=== PATIENT | male | born 1985 | race Caucasian/White ===

== ENCOUNTER 2016-09-12 22:12 | Emergency (ER) | payer SELFPAY ==
[~2016-09-12] VITALS: Ht 188 cm; Wt 68.0 kg
--- NOTE | 2016-09-12 22:12 | NUR ---
Patient was BIBA and taken to bed 04 via gurney per EMS.
[2016-09-12 22:15] VITALS: BP 122/83
[2016-09-12] MEDS ORDERED: HALOPERIDOL IM 5 MG/ML VIAL IM ONE (22:15)
[2016-09-12] MEDS ORDERED: LORazepam 2 MG/ML VIAL IM ONE (22:15)
[2016-09-12] MEDS ORDERED: NACL 0.9% 1,000 ML IV ONE (22:15)
--- NOTE | 2016-09-12 22:16 | NUR ---
Dr. Llamas evaluating patient at bedside.
--- NOTE | 2016-09-12 22:18 | NUR ---
31Y M GARY WOLFE,[place], SCREAMING AND YELLING. CLAIMING HE IS GOD. NO DISTRESS NOTED. PT ON 4 POINT RESTRAINTS WHEN TRANSPORTED BY [facility].PT STATES NO MED HX. 31Y M GARY WOLFE,[place], SCREAMING AND YELLING. CLAIMING HE IS GOD. NO DISTRESS NOTED. PT ON 4 POINT RESTRAINTS WHEN TRANSPORTED BY [facility].PT STATES NO MED HX. DENIES N/V/D LUNGS CLEAR BL; HR EVEN AND REGULAR; PT DENIES ANY FEVER, CP, SOB, OR COUGH AT THIS TIME; PATIENT STATES PAIN OF 0/10 AT THIS TIME; VSS; PATIENT POSITIONED FOR COMFORT; HOB ELEVATED; BEDRAILS UP X2; BED DOWN. ER MD MADE AWARE OF PT STATUS.
--- NOTE | 2016-09-12 22:26 | NUR ---
LAB at bedside.
[2016-09-12 22:35] LABS: BASOPHILS # (AUTO) 0.2 K/uL (0.00-0.22); BASOPHILS % (AUTO) 1.7 % (0.0-2.0); EOSINOPHILS # (AUTO) 0.1 K/uL (0-0.4); EOSINOPHILS % (AUTO) 1.1 % (0.0-4.0); HEMATOCRIT 43.9 % (36-52); HEMOGLOBIN 14.4 g/dL (12.0-18.0); LYMPHOCYTES # (AUTO) 1.9 K/uL (2.0-11.5); LYMPHOCYTES % (AUTO) 16.4 % (20.5-51.1); MEAN CORPUSCULAR HEMOGLOBIN 30 pg (27-31); MEAN CORPUSCULAR HGB CONC 33 g/dL (33-37); MEAN CORPUSCULAR VOLUME 91 fL (80-94); MONOCYTES # (AUTO) 1.1 K/uL (0.8-1.0); MONOCYTES % (AUTO) 9.1 % (1.7-9.3); NEUTROPHILS # (AUTO) 8.3 K/uL (1.8-7.7); NEUTROPHILS % (AUTO) 71.7 % (42.2-75.2); PLATELET COUNT (AUTO) 352 K/uL (140-450); RED BLOOD CELL COUNT(AUTO) 4.83 MIL/uL (4.20-6.10); WHITE BLOOD COUNT (AUTO) 11.6 K/uL (4.8-10.8)
[2016-09-12 22:48] LABS: INR 1.2 (0.8-1.2); PROTHROMBIN TIME 11.2 secs (10.8-13.4)
[2016-09-12 22:50] LABS: ALANINE AMINOTRANSFERASE 27 U/L (12-78); ALBUMIN 4.4 g/dL (3.4-5.0); ALCOHOL, BLOOD < 3 mg/dL (<3); ALKALINE PHOSPHATASE 70 U/L (46-116); ANION GAP 14.1 (8-16); ASPARTATE AMINOTRANSFERASE 34 U/L (15-37); CARBON DIOXIDE 26.4 mmol/L (21-32); CHLORIDE 100 mmol/L (98-107); CREATININE 1.3 mg/dL (0.6-1.3); GFR ARICAN-AMERICAN 83 mL/min (>90); GFR NON ARICAN-AMERICAN 68 mL/min (>90); GLUCOSE 136 mg/dL (74-106); POTASSIUM 3.5 mmol/L (3.5-5.1); SALICYLATE 3.6 mg/dL (2.8-20.0); SODIUM SERUM 137 mmol/L (136-145); TOTAL BILIRUBIN 0.7 mg/dL (0.0-1.0); TOTAL PROTEIN, SERUM 7.8 g/dL (6.4-8.2); UREA NITROGEN, BLOOD 11 mg/dL (7-18)
[2016-09-12 22:51] LABS: ACETAMINOPHEN < 0.5 ug/ml (10-30)
[2016-09-12 23:59] LABS: AMPHETAMINE, URINE POS. ng/ml (NEG <=1000); BARBITURATE, URINE NEG. ng/ml (NEG <=200); BENZODIAZEPINE, URINE NEG. ng/mL (NEG <=200); CANNABINOID, URINE POS. ng/mL (NEG <=50); COCAINE, URINE NEG. ng/mL (NEG <=300); OPIATE, URINE NEG. ng/mL (NEG <=2000); PHENCYCLIDINE SCREEN,URINE NEG. ng/mL (NEG <=25)
--- NOTE | 2016-09-12 23:59 | NUR ---
PT APPEARS TO BE RESTING COMFORTABLY IN BED. NO SOB NOTED. WILL CONTINUE TO MONITOR.
[2016-09-13 00:24] VITALS: BP 123/71
--- NOTE | 2016-09-13 00:25 | NUR ---
Patient discharged with v/s stable. Written and verbal after care instructions given and explained. Patient alert, oriented and verbalized understanding of instructions. Ambulatory with steady gait. All questions addressed prior to discharge. ID band removed. Patient advised to follow up with PMD. NO Rx WERE given. Patient educated on indication of medication including possible reaction and side effects. Opportunity to ask questions provided and answered.
== END 2016-09-13 00:25 | disposition home or self-care (01) ==
LOC: MED 22:12
DX: T40.7X1A Poisoning by cannabis (derivatives), accidental (unintentional), initial encounter (principal); R41.82 Altered mental status, unspecified; F15.10 Other stimulant abuse, uncomplicated; Y92.488 Other paved roadways as the place of occurrence of the external cause
CPT/HCPCS: 36415; 80053; 80305; 85025; 85610; 96360; 96372; 99291; G0480; G0482; J1630; J2060; J7030

== ENCOUNTER 2016-12-19 02:00 | Emergency (ER) | payer MEDICAID ==
[~2016-12-19] VITALS: Ht 188 cm; Wt 61.2 kg
[2016-12-19 02:04] VITALS: BP 113/71
--- NOTE | 2016-12-19 02:16 | NUR ---
Patient to OF.
--- NOTE | 2016-12-19 02:18 | NUR ---
Dr. Foster evaluating patient.
[2016-12-19] MEDS ORDERED: IBUPROFEN 800 MG TAB PO ONE (02:30)
--- NOTE | 2016-12-19 02:31 | NUR ---
31Y/ M PT. PRESENTS TO ED WITH C/O BOTH FOOT PAIN, AND LEFT KNEE HURTS FOR 5 DAYS, GETTING WORST IN WALKING AROUND, PATIENT HOMELESS. AAO X4, AMBULATORY WITH STEADY GAIT. RESPIRATIONS ROOM AIR, EVEN AND UNLABORED. SKIN WARM AND DRY. NO INJURY. VSS.
[2016-12-19 02:50] VITALS: BP 113/71
--- NOTE | 2016-12-19 02:50 | NUR ---
Patient discharged with v/s stable. Written and verbal after care instructions given and explained. Patient alert, oriented and verbalized understanding of instructions. Ambulatory with steady gait. All questions addressed prior to discharge. ID band removed. Patient advised to follow up with PMD. Rx of MOTRIN 600 MG given. Patient educated on indication of medication including possible reaction and side effects. Opportunity to ask questions provided and answered.
== END 2016-12-19 02:50 | disposition home or self-care (01) ==
LOC: MED 02:00
DX: M79.672 Pain in left foot (principal); M79.671 Pain in right foot; M25.562 Pain in left knee
CPT/HCPCS: 99282

== ENCOUNTER 2019-04-20 04:02 | Emergency (ER) | payer MEDICAID ==
[~2019-04-20] VITALS: Ht 188 cm; Wt 84.8 kg
[2019-04-20 04:12] VITALS: BP 139/87
[2019-04-20] MEDS: KETOROLAC 60 MG/2 ML VIAL IM ONE (04:30)
[2019-04-20 06:05] VITALS: BP 122/81
== END 2019-04-20 06:06 | disposition home or self-care (01) ==
LOC: MED 04:02
DX: M54.2 Cervicalgia (principal); R51 Headache; F17.210 Nicotine dependence, cigarettes, uncomplicated
CPT/HCPCS: 96372; 99283; J1885

== ENCOUNTER 2019-04-20 14:00 | Emergency (ER) | payer MEDICAID ==
[~2019-04-20] VITALS: Ht 188 cm; Wt 81.6 kg
--- NOTE | 2019-04-20 14:04 | NUR ---
TO LOBBY A/W BED AMBULATORY
[2019-04-20 14:12] VITALS: BP 140/90
--- NOTE | 2019-04-20 14:54 | NUR ---
PT TO BED 8 WITH STEADY GAIT
--- NOTE | 2019-04-20 14:58 | NUR ---
NECK RADIATING TO HEAD AND MAXILLARY AREA PAIN AT 10/10, NO TRAUMA NOR INJURY, FOR A WEEK NO MEDS TAKEN . PT AWAKE ,ALERT, AMBULATORY WITH STEADY GAIT. PMHX DENIES ILLNESS.
--- NOTE | 2019-04-20 15:01 | NUR ---
PT GOING TO XRAY VIA WHEELCHAIR
--- NOTE | 2019-04-20 15:02 | NUR ---
PT WENT TO XRAY VIA WHEEL CHAIR
[2019-04-20] MEDS ORDERED: KETOROLAC 60 MG/2 ML VIAL IM ONE (15:40)
--- NOTE | 2019-04-20 15:44 | NUR ---
TORADOL IM ADMINISTERED BY ZURI VINCENT
--- NOTE | 2019-04-20 16:11 | NUR ---
PAIN LEVEL AT 7/10.PT RESTING ON BED.
--- NOTE | 2019-04-20 16:37 | NUR ---
PT MOVED TO CHAIR C
--- NOTE | 2019-04-20 16:38 | NUR ---
NADR AT THIS TIME
--- NOTE | 2019-04-20 16:45 | NUR ---
Patient discharged BY DR OSEGUERA. Written and verbal after care instructions given and explaineD BY DR OSEGUERA. Patient Ambulatory with steady gait. ID band removed. Rx of NAPROSYN given.
== END 2019-04-20 16:45 | disposition home or self-care (01) ==
LOC: MED 14:00
DX: S13.9XXA Sprain of joints and ligaments of unspecified parts of neck, initial encounter (principal); F17.210 Nicotine dependence, cigarettes, uncomplicated; Z98.890 Other specified postprocedural states; Z71.6 Tobacco abuse counseling; X58.XXXA Exposure to other specified factors, initial encounter; Y92.89 Other specified places as the place of occurrence of the external cause; Y93.89 Activity, other specified; Y99.8 Other external cause status
CPT/HCPCS: 72040; 96372; 99283; J1885

== ENCOUNTER 2019-05-19 19:09 | Emergency (ER) | payer MEDICAID ==
[~2019-05-19] VITALS: Ht 185.4 cm; Wt 84.8 kg
[2019-05-19 20:20] VITALS: BP 114/61
[2019-05-19 20:52] VITALS: BP 120/62
== END 2019-05-19 20:52 | disposition home or self-care (01) ==
LOC: MED 19:09
DX: L84 Corns and callosities (principal)
CPT/HCPCS: 99281

== ENCOUNTER 2019-06-09 18:28 | Emergency (ER) | payer MEDICAID ==
[~2019-06-09] VITALS: Ht 188 cm; Wt 84.8 kg
[2019-06-09 18:34] VITALS: BP 116/67
--- NOTE | 2019-06-09 18:55 | NUR ---
PT TO ER CHAIR D
--- NOTE | 2019-06-09 19:17 | NUR ---
PT BACK FROM X RAY
--- NOTE | 2019-06-09 19:19 | NUR ---
PT C/O RIGHT NEED PAIN X2 DAYS. PT UNKNOWN IF HE HAD ANY TRUAMA TO AREA. PT APPEARS TO BE IN NO DISTRESS. PT DENIES ANY NUMBNESS OR TINGLING IN BILATERAL LEGS. PT PMSC INTACT. PT STATES PAIN IS 10/10. WAITING FOR X-RAY RESULTS. DENIES N/V/D; SKIN IS PINK/WARM/DRY; AAOX4 WITH EVEN AND STEADY GAIT; LUNGS CLEAR BL; HR EVEN AND REGULAR; PT DENIES ANY FEVER, CP, SOB, OR COUGH AT THIS TIME; VSS; PATIENT POSITIONED FOR COMFORT; PT SITTING IN CHAIR WALL D. OLVIN CHRISTENSEN MADE AWARE OF PT STATUS.
[2019-06-09] MEDS ORDERED: KETOROLAC 30 MG/ML VIAL IM ONE (20:05)
--- NOTE | 2019-06-09 20:15 | NUR ---
DPatient discharged with v/s stable. Written and verbal after care instructions given and explained. Patient alert, oriented and verbalized understanding of instructions. Ambulatory with steady gait. All questions addressed prior to discharge. ID band removed. Patient advised to follow up with PMD. Rx of MOTRIN AND ATARAX given. Patient educated on indication of medication including possible reaction and side effects. Opportunity to ask questions provided and answered. PT GIVING RX, BUS PASS, FOOD TRAY AND HOMELESS PACKET. PT REFUSED CLOTHES.
[2019-06-09 20:17] VITALS: BP 108/62
== END 2019-06-09 20:15 | disposition home or self-care (01) ==
LOC: MED 18:28
DX: M54.5 Low back pain (principal); M25.561 Pain in right knee; Z59.0 Homelessness
CPT/HCPCS: 72100; 73562; 96372; 99283; J1885

== ENCOUNTER 2019-06-22 00:40 | Emergency (ER) | payer MEDICAID ==
[~2019-06-22] VITALS: Ht 188 cm; Wt 84.8 kg
[2019-06-22 00:45] VITALS: BP 128/89
--- NOTE | 2019-06-22 00:48 | NUR ---
TO LOBBY A/W BED AMBULATORY
--- NOTE | 2019-06-22 02:33 | NUR ---
PT C/O OF BILAT FOOT PAIN X TODAY. RATES PAIN 10/10 AND DESCRIBES IT STABBING. NO OBVIOUS DEFORMITY NOTED. CMS INACT. VSS. A&O X4. STEADY GAIT. NKA. DENIES ANY PMH.
--- NOTE | 2019-06-22 02:33 | NUR ---
PT AMBULATED TO BED 8
[2019-06-22 05:00] VITALS: BP 128/89
--- NOTE | 2019-06-22 05:00 | NUR ---
Patient given written and verbal discharge instructions and verbalizes understanding. Given copies of tests performed during visit. Patient is awake, alert and oriented. Ambulatory with steady gait. Given list of available shelters in surrounding areas. PROVIDED TRANSPORTATION, FOOD, BLANKETS, SOCKS, AND HOMELESS RESOURSE PACKET.
== END 2019-06-22 05:00 | disposition home or self-care (01) ==
LOC: MED 00:40
DX: M79.671 Pain in right foot (principal)
CPT/HCPCS: 99282

== ENCOUNTER 2019-07-07 18:30 | Emergency (ER) | payer MEDICAID ==
[~2019-07-07] VITALS: Ht 188 cm; Wt 84.8 kg
[2019-07-07 18:48] VITALS: BP 115/66
--- NOTE | 2019-07-07 18:50 | NUR ---
TRIAGE COMPLETE. VSS. TO LOBBY AWAITNG BED IN ED.
--- NOTE | 2019-07-07 18:50 | NUR ---
Elena hall in [facility] - 07/07/19 at 1850 by JENNY COLD SYMPTOMS--CONGESTION S/T SEASONAL ALLERGIES
--- NOTE | 2019-07-07 19:43 | NUR ---
PT TAKEN TO BED 1
--- NOTE | 2019-07-07 19:44 | NUR ---
PT MOVED TO CHAIR D
[2019-07-07 22:04] VITALS: BP 115/66
--- NOTE | 2019-07-07 22:04 | NUR ---
Patient discharged with v/s stable. Written and verbal after care instructions given and explained. Patient alert, oriented and verbalized understanding of instructions. Ambulatory with to car. All questions addressed prior to discharge. ID band removed. Patient advised to follow up with PMD. Rx of IBUPROFEN AND PROMETHAZINE WERE given. Patient educated on indication of medication including possible reaction and side effects. Opportunity to ask questions provided and answered. PT WAS ASSESSED AND TREATED BY HARRIETT COX
== END 2019-07-07 22:04 | disposition home or self-care (01) ==
LOC: MED 18:30
DX: J06.9 Acute upper respiratory infection, unspecified (principal); F17.210 Nicotine dependence, cigarettes, uncomplicated
CPT/HCPCS: 99282; 99283

== ENCOUNTER 2019-07-21 22:24 | Emergency (ER) | payer MEDICAID ==
[~2019-07-21] VITALS: Ht 188 cm; Wt 84.8 kg
[2019-07-21 22:39] VITALS: BP 124/79
[2019-07-21 23:57] VITALS: BP 128/81
== END 2019-07-21 23:57 | disposition home or self-care (01) ==
LOC: MED 22:24
DX: S60.221A Contusion of right hand, initial encounter (principal); Z98.890 Other specified postprocedural states; W22.8XXA Striking against or struck by other objects, initial encounter; Y93.89 Activity, other specified; Y92.89 Other specified places as the place of occurrence of the external cause; Y99.8 Other external cause status
CPT/HCPCS: 73130; 99283; Q0092; 99282

== ENCOUNTER 2020-11-21 14:22 | Emergency (ER) | payer MEDICAID ==
[~2020-11-21] VITALS: Ht 182.9 cm; Wt 72.6 kg
--- NOTE | 2020-11-21 14:22 | NUR ---
[place] [facility] to bed 9. Dr. Weber and the RN are evaluating the patient at bedside.
[2020-11-21 14:25] VITALS: BP 160/118
--- NOTE | 2020-11-21 14:43 | NUR ---
Assumed care of pt at this time. Pt awake and mumbling words. Pt is A&Ox4. Pt admitted to taking heroin and Fentanyl. Pt continuously talking to himself. Allergies: unable to obtain Med hx: unable to obtain
--- NOTE | 2020-11-21 15:18 | NUR ---
LAB ATTEMPTED TO DRAW BLOOD. PT REFUSED.
--- NOTE | 2020-11-21 16:10 | NUR ---
MD Weber made aware pt is refusing blood work.
--- NOTE | 2020-11-21 16:19 | NUR ---
MD Weber evaluating pt at bedside
[2020-11-21 16:33] VITALS: BP 160/118
--- NOTE | 2020-11-21 16:34 | NUR ---
Patient discharged with v/s stable. Written and verbal after care instructions given and explained. Patient verbalized understanding. Ambulatory with steady gait. All questions addressed prior to discharge. Advised to follow up with PMD.
== END 2020-11-21 16:34 | disposition home or self-care (01) ==
LOC: MED 14:22
DX: F19.10 Other psychoactive substance abuse, uncomplicated (principal); Z98.890 Other specified postprocedural states
CPT/HCPCS: 93005; 99283

== ENCOUNTER 2021-05-04 19:15 | Emergency (ER) | payer MEDICAID ==
[~2021-05-04] VITALS: Ht 188 cm; Wt 81.6 kg
[2021-05-04 19:25] VITALS: BP 128/83
[2021-05-04] MEDS ORDERED: DIPH25TA53 PO (20:15)
[2021-05-04] MEDS ORDERED: ELIMC TP (20:15)
--- NOTE | 2021-05-04 20:25 | NUR ---
Patient discharged with v/s stable. Written and verbal after care instructions given and explained. Patient alert, oriented and verbalized understanding of instructions. Ambulatory with steady gait. All questions addressed prior to discharge. ID band removed. Patient advised to follow up with PMD. Rx of PERMERTHRIN AND BEANDRYL given. Patient educated on indication of medication including possible reaction and side effects. Opportunity to ask questions provided and answered.
== END 2021-05-04 20:25 | disposition home or self-care (01) ==
LOC: MED 19:15
DX: R21 Rash and other nonspecific skin eruption (principal)
CPT/HCPCS: 99282

== ENCOUNTER 2021-05-26 04:30 | Emergency (ER) | payer MEDICAID ==
[~2021-05-26] VITALS: Ht 182.9 cm; Wt 84.8 kg
[~2021-05-26 04:30] MED LIST: DIPH25TA53 PO; ELIMC TP
[2021-05-26 04:40] VITALS: BP 137/112
--- NOTE | 2021-05-26 04:40 | NUR ---
35 Y/O MALE BIB PD , C/O DOG BITE TO RIGHT ARM BY POLICE DOG. PT IS IN CUSTODY. PT IS MUMBLING TO HIMSELF. PT HAS CLEAR BREATH SOUND WITH EQUAL CHEST RISE AND FALL, UNLABORED BREATHING. HR IS EVEN AND REGULAR. PT HAS NO FEVER, CHILLS, HEADACHE, COUGH, OR SORE THROAT. PT IS AMBULATORY W/O ASSISTANCE. PT STATES HE HAS 0/10 PAIN AT THIS TIME. VSS. PT SEATED IN CHAIR NEXT TO PD OFFICER. PT DENIES PMH, ALLERGIES, SURGERIES OR MEDS.
[2021-05-26] MEDS ORDERED: AMOX-999 PO (05:30)
--- NOTE | 2021-05-26 08:01 | NUR ---
Elena hall in [facility] - 05/26/21 at 0811 by [email or web address] WOUND S/P DOG BITE CLEANED.
--- NOTE | 2021-05-26 08:12 | NUR ---
WOUNDED FLUSHED AND CLEANED. NON ADHERENT BANDAGE APPLIED AND WRAPPED.
--- NOTE | 2021-05-26 08:13 | NUR ---
Patient discharged with v/s stable. Written and verbal after care instructions given and explained. Patient alert, oriented and verbalized understanding of instructions. Police with in custody. All questions addressed prior to discharge. ID band removed. Patient advised to follow up with PMD. Rx of AMOXICILLIN given. Patient educated on indication of medication including possible reaction and side effects. Opportunity to ask questions provided and answered.
[2021-05-26 08:14] VITALS: BP 125/90
== END 2021-05-26 08:13 | disposition home or self-care (01) ==
LOC: MED 04:30
DX: S41.151A Open bite of right upper arm, initial encounter (principal); Z79.899 Other long term (current) drug therapy; W54.0XXA Bitten by dog, initial encounter; Y93.89 Activity, other specified; Y92.89 Other specified places as the place of occurrence of the external cause; Y99.8 Other external cause status
CPT/HCPCS: 90471; 90715; 99283

== ENCOUNTER 2021-10-07 03:12 | Emergency (ER) | payer MEDICAID ==
[~2021-10-07] VITALS: Ht 188 cm; Wt 80.4 kg
[~2021-10-07 03:12] MED LIST changes: +AMOX-999 PO
[2021-10-07 03:24] VITALS: BP 123/96
--- NOTE | 2021-10-07 04:02 | NUR ---
Dr. Cherry examining patient.
[2021-10-07 04:22] VITALS: BP 123/96
--- NOTE | 2021-10-07 04:23 | NUR ---
NO NURSING INTERVENTONS NEEDED
== END 2021-10-07 04:23 | disposition home or self-care (01) ==
LOC: MED 03:12
DX: F20.9 Schizophrenia, unspecified (principal); Z76.0 Encounter for issue of repeat prescription
CPT/HCPCS: 99282

== ENCOUNTER 2022-12-07 10:50 | Emergency (ER) | payer MEDICAID ==
[~2022-12-07] VITALS: Ht 175.3 cm; Wt 71.7 kg
--- NOTE | 2022-12-07 10:57 | NUR ---
37 Y/O M PATIENT BIBA/ AND [place] [employer] PRESENTS TO ED WITH SIGNS OF SI. PT SATTING AT 98% . DENIES VOMITING AND DIAHERRA; SKIN IS PINK/WARM/DRY; AAOX4, PT AMBULATES WITH ASSIST; LUNGS CLEAR BL; HR EVEN AND REGULAR; PT DENIES ANY FEVER, CP, SOB, OR COUGH AT THIS TIME; PATIENT STATES PAIN OF 0/10 AT THIS TIME; VSS; PATIENT POSITIONED FOR COMFORT; HOB ELEVATED; BEDRAILS UP X2; BED DOWN. CALL LIGHT WITH IN REACH ER MD MADE AWARE OF PT STATUS. PMHX ALLERGIES
--- NOTE | 2022-12-07 10:57 | NUR ---
PATIENT BIBA TO ED BED
[2022-12-07 10:58] VITALS: BP 165/90; PULSE 101; RESP 17; TEMP 97.4; O2SAT 99
[2022-12-07 12:06] VITALS: BP 149/89; PULSE 97; RESP 17; O2SAT 98
--- NOTE | 2022-12-07 12:07 | NUR ---
PATIENT BIB [employer]. PATIENT EXAMINED BY DR. DIEZ. PATIENT MEDICALLY CLEARED AND RELEASED IN CUSTODY IN STABLE CONDITION. ORIGINAL PRE-BOOK FORM GIVEN TO OFFICER.
== END 2022-12-07 13:00 ==
LOC: MED 10:50
DX: M54.2 Cervicalgia (principal); F20.9 Schizophrenia, unspecified; F12.90 Cannabis use, unspecified, uncomplicated; Z02.89 Encounter for other administrative examinations; Z79.899 Other long term (current) drug therapy
CPT/HCPCS: 99283